=== PATIENT | female | born 1955 | race Caucasian/White ===

== ENCOUNTER 2019-04-25 13:01 | Emergency (ER) | payer MEDICARE, OTHER ==
[2019-04-25] MEDS: IBUPROFEN 800 MG TAB PO (13:54)
[2019-04-25 14:22] LABS: ADD MAN DIFF? NO
[2019-04-25 14:30] LABS: BASOPHILS % 0.6 % (0.0-2.0); EOSINOPHILS # 0.1 10^3/ul (0.0-0.5); EOSINOPHILS % 0.7 % (0.0-7.0); HEMATOCRIT 38.9 % (37.0-47.0); HEMOGLOBIN 12.3 g/dl (12.0-16.0); LYMPHOCYTES # 3.1 10^3/ul (0.8-2.9); LYMPHOCYTES % 44.2 % (15.0-51.0); MEAN CORPUSCULAR HEMOGLOBIN 20.3 pg (29.0-33.0); MEAN CORPUSCULAR HGB CONC 31.6 g/dl (32.0-37.0); MEAN CORPUSCULAR VOLUME 64.1 fl (82.0-101.0); MONOCYTE # 0.5 10^3/ul (0.3-0.9); MONOCYTES % 6.5 % (0.0-11.0); NEUTROPHIL # 3.3 10^3/ul (1.6-7.5); NEUTROPHILS % 47.9 % (39.0-77.0); NUCLEATED RED BLOOD CELLS% 0.3 /100WBC (0.0-0.0); PLATELET COUNT 182 10^3/UL (140-415); RED BLOOD COUNT 6.07 10^6/ul (4.20-5.40); RED CELL DISTRIBUTION WIDTH 18.6 % (11.5-14.5)
[2019-04-25 14:43] LABS: ADD UMIC NO; UR ASCORBIC ACID NEGATIVE (NEGATIVE); UR BILIRUBIN (Dip) NEGATIVE (NEGATIVE); UR BLOOD (Dip) NEGATIVE (NEGATIVE); UR CLARITY CLEAR (CLEAR); UR COLOR STRAW (YELLOW); UR GLUCOSE (Dip) NEGATIVE (NEGATIVE); UR KETONES (Dip) NEGATIVE (NEGATIVE); UR LEUKOCYTE ESTERASE (Dip) NEGATIVE Leu/ul (NEGATIVE); UR NITRITE (Dip) NEGATIVE (NEGATIVE); UR SPECIFIC GRAVITY (Dip) 1.005 (1.003-1.030); UR TOTAL PROTEIN (Dip) NEGATIVE (NEGATIVE); UR UROBILINOGEN (Dip) NEGATIVE (NEGATIVE)
[2019-04-25 14:48] LABS: ALANINE AMINOTRANSFERASE 62 IU/L (13-69); ALBUMIN 4.7 g/dl (3.3-4.9); ALBUMIN/GLOBULIN RATIO 1.42; ALKALINE PHOSPHATASE 71 IU/L (42-121); ANION GAP 12 (5-13); ASPARTATE AMINO TRANSFERASE 40 IU/L (15-46); BILIRUBIN,INDIRECT 0.7 mg/dl (0-1.1); BILIRUBIN,TOTAL 0.7 mg/dl (0.2-1.3); BLOOD UREA NITROGEN 11 mg/dl (7-20); CALCIUM 9.9 mg/dl (8.4-10.2); CARBON DIOXIDE 33 mmol/L (21-31); CHLORIDE 96 mmol/L (97-110); CREATININE 0.56 mg/dl (0.44-1.00); Estimated GFR > 60 mL/min (>60); GLUCOSE 140 mg/dl (70-220); POTASSIUM 3.6 mmol/L (3.5-5.1); SODIUM 141 mmol/L (135-144)
[2019-04-25 14:54] LABS: B-TYPE NATRIURETIC PEPTIDE 30 PG/ML (0-125)
[2019-04-25 15:00] LABS: TROPONIN-I < 0.012 ng/ml (0.000-0.120)
== END 2019-04-25 15:40 | disposition home or self-care (01) ==
LOC: FTE 13:01
DX: M54.2 Cervicalgia (principal); M54.9 Dorsalgia, unspecified; R53.1 Weakness; I10 Essential (primary) hypertension
CPT/HCPCS: 36415; 72040; 80053; 81003; 83880; 84484; 85025; 93005; 99285-25

== ENCOUNTER 2019-07-15 10:12 | Day surgery (SDC) | payer MEDICARE, OTHER ==
[2019-07-15] MEDS ORDERED: LACTATED RINGER'S 1,000 ML IV (11:00)
[2019-07-15] MEDS ORDERED: ROCURONIUM 50 MG INJ (12:22)
[2019-07-15] MEDS ORDERED: CEFAZOLIN 1 GM INJ (12:22)
[2019-07-15] MEDS ORDERED: SUCCINYLCHOLINE CHLORIDE 100 MG/5 ML SYG IV (12:22)
[2019-07-15] MEDS ORDERED: LIDOCAINE 2% (SDV) 5 ML INJ (12:22)
[2019-07-15] MEDS ORDERED: PROPOFOL 20 ML (12:22)
[2019-07-15] MEDS ORDERED: NEOSTIGMINE 3 MG/3 ML SYRINGE ×2 (12:22→13:18)
[2019-07-15] MEDS ORDERED: GLYCOPYRROLATE 0.4 MG INJ ×2 (12:22→13:18)
[2019-07-15] MEDS ORDERED: METOCLOPRAMIDE 10 MG INJ (13:17)
[2019-07-15] MEDS ORDERED: ONDANSETRON 4 MG INJ (13:17)
[2019-07-15] MEDS ORDERED: FENTAnyl 50 MCG/ML VIAL IV ×3 (14:00)
[2019-07-15] MEDS ORDERED: ONDANSETRON 4 MG INJ IV (14:00)
[2019-07-15] MEDS ORDERED: EPHEDrine 25 MG/5 ML SYG IV (14:00)
[2019-07-15] MEDS ORDERED: HYDROmorphONE 1 MG/5 ML IV SYRINGE IV (14:00)
[2019-07-15] MEDS ORDERED: DIPHENHYDRAMINE 50 MG INJ IV (14:00)
[2019-07-15] MEDS ORDERED: MEPERIDINE 25 MG INJ IV (14:00)
[2019-07-15] MEDS ORDERED: HYDROCODONE/APAP (5/325) TAB PO (14:00)
[2019-07-15] MEDS ORDERED: METOCLOPRAMIDE 10 MG INJ IV (14:00)
[2019-07-15] MEDS ORDERED: hydrALAzine 20 MG INJ IV (14:00)
[2019-07-15] MEDS ORDERED: LABETALOL HCL 20MG INJ IV (14:00)
[2019-07-15] MEDS ORDERED: MIDAZOLAM 1 MG/ML 2 ML INJ IV (14:00)
[2019-07-15] MEDS: HYDROmorphONE 1 MG/5 ML IV SYRINGE IV ×2 (14:05→14:58)
== END 2019-07-15 15:42 | disposition home or self-care (01) ==
LOC: SDS 10:12
DX: C67.9 Malignant neoplasm of bladder, unspecified (principal); I10 Essential (primary) hypertension
CPT/HCPCS: 52234; 87086; 88305